=== PATIENT | female | born 1990 | race Asian ===

== ENCOUNTER 2022-03-12 10:40 | Emergency (ER) | payer MEDICAID ==
[~2022-03-12] VITALS: Ht 165.1 cm; Wt 81.8 kg
[2022-03-12 11:39] LABS: BASOPHILS % (AUTO) 0.2 % (0.0-2.0); EOSINOPHILS % (AUTO) 0.9 % (1.0-6.0); HEMATOCRIT 40.3 % (36-46); HEMOGLOBIN 13.4 g/dL (12.0-16.0); LYMPHOCYTES # (AUTO) 2.1 K/uL (1.0-4.8); LYMPHOCYTES % (AUTO) 11.7 % (22.0-44.0); MEAN CORPUSCULAR HEMOGLOBIN 31.1 pg (26.0-34.0); MEAN CORPUSCULAR HGB CONC 33.1 G/dL (31.0-37.0); MEAN CORPUSCULAR VOLUME 94 fL (80-100); MONOCYTES # (AUTO) 0.8 K/uL (0.1-1.0); MONOCYTES % (AUTO) 4.8 % (2.0-9.0); NEUTROPHILS # (AUTO) 14.4 K/uL (1.8-7.7); NEUTROPHILS % (AUTO) 82.4 % (40.0-70.0); PLATELET COUNT (AUTO) 364 K/uL (150-450); RED BLOOD CELL COUNT(AUTO) 4.29 MIL/uL (4.00-5.20); RED CELL DISTRIBUTION WIDTH 13.1 % (11.5-14.5)
[2022-03-12 11:49] LABS: ANION GAP 8 mmol/L (8-16); CALCIUM, TOTAL 9.2 mg/dL (8.8-10.5); CARBON DIOXIDE 28 mmol/L (22-29); CHLORIDE 102 mmol/L (98-107); CREATININE 0.77 mg/dL (0.60-1.30); GLUCOSE,RANDOM 120 mg/dL (70-110); POTASSIUM 3.8 mmol/L (3.5-5.1); SODIUM SERUM 138 mmol/L (136-145); UREA NITROGEN, BLOOD 7 mg/dL (7-18)
[2022-03-12 11:50] LABS: GLOMERULAR FILTR. RATE CALC > 60 mL/min (>60)
[2022-03-12 12:06] LABS: ALANINE AMINOTRANSFERASE 39 U/L (12-78); ALBUMIN 3.9 g/dL (3.4-5.0); ALKALINE PHOSPHATASE 64 U/L (46-116); ASPARTATE AMINOTRANSFERASE 18 U/L (15-37); BILIRUBIN,TOTAL 0.4 mg/dL (0.1-1.0); HCG,QUANTITATIVE < 1 mIU/mL (0-6); LIPASE 90 U/L (73-393)
[2022-03-12] MEDS ORDERED: ONDANSETRON HCL 4 MG/2 ML VIAL IVP ONE (12:15)
[2022-03-12] MEDS ORDERED: SODIUM CHLORIDE 0.9% 1,000 ML IV ONE (12:15)
[2022-03-12 13:38] VITALS: BP 126/80
== END 2022-03-12 13:49 | disposition home or self-care (01) ==
LOC: EMS 10:40
DX: K52.9 Noninfective gastroenteritis and colitis, unspecified (principal)
CPT/HCPCS: 99283; 96374; 96361; 80053; 81002; 83690; 84702; 85025; 36415; J2405; J7030

== ENCOUNTER 2025-03-13 10:27 | Inpatient (IN) | payer MEDICAID ==
[~2025-03-13] VITALS: Ht 165.1 cm; Wt 76.4 kg
[2025-03-13 10:51] LABS: PLATELET COUNT (AUTO) 347 K/uL (150-450); RED BLOOD CELL COUNT(AUTO) 4.13 MIL/uL (4.00-5.20); RED CELL DISTRIBUTION WIDTH 12.9 % (11.5-14.5); WHITE BLOOD COUNT (AUTO) 10.6 K/uL (4.5-11.0)
[2025-03-13 11:01] LABS: CALCIUM, TOTAL 8.5 mg/dL (8.8-10.5); CREATININE 0.65 mg/dL (0.60-1.30); GLOMERULAR FILTR. RATE CALC > 60 mL/min (>60); GLUCOSE,RANDOM 150 mg/dL (70-110); SODIUM SERUM 137 mmol/L (136-145); UREA NITROGEN, BLOOD 7 mg/dL (7-18)
[2025-03-13 11:07] LABS: COVID AG,FIA SOURCE NASAL SWAB
[2025-03-13 11:07] LABS: ASPARTATE AMINOTRANSFERASE 23 U/L (15-37); TOTAL PROTEIN, SERUM 7.6 g/dL (6.4-8.2)
[2025-03-13] MEDS: SODIUM CHLORIDE 0.9% 1,000 ML IV ONE (11:09)
[2025-03-13 11:15] LABS: ALCOHOL, BLOOD (SERUM) < 3 mg/dL (0-10)
[2025-03-13 11:27] LABS: SARS-COV2 (COVID) ANTIGEN,FIA Negative (Negative)
[2025-03-13 11:38] LABS: APPEARANCE,URINE CLEAR (CLEAR); GLUCOSE, URINE (UA) NEGATIVE (NEGATIVE); LEUKOCYTE ESTERASE ,URINE LARGE (NEGATIVE); NITRATE,URINE NEGATIVE (NEGATIVE); OCCULT BLOOD,URINE NEGATIVE (NEGATIVE); PH,URINE DRUG SCREEN 6.0 (5.0-8.0); SPECIFIC GRAVITIY, URINE 1.013 (1.003-1.030)
[2025-03-13 11:44] LABS: SQUAMOUS EPITHELIAL CELL,UR Moderate /LPF (None Seen)
[2025-03-13 11:48] LABS: ALCOHOL, URINE DRUG SCREEN NEGATIVE (NEGATIVE); AMPHET/METH SCREEN,URINE NEGATIVE (NEGATIVE); BARBITURATE SCREEN, URINE NEGATIVE (NEGATIVE); CANNABINOID SCREEN,URINE NEGATIVE (NEGATIVE); COCAINE SCREEN,URINE NEGATIVE (NEGATIVE); METHADONE SCREEN, URINE NEGATIVE (NEGATIVE)
[2025-03-13] MEDS: CEPHALEXIN MONOHYDRATE 500 MG CAPSULE PO ONE (12:12)
[2025-03-13] MEDS ORDERED: ZOLPIDEM TARTRATE 10 MG TABLET PO PRN (12:45)
[2025-03-13 17:00] VITALS: O2SAT 99
[2025-03-13] MEDS ORDERED: CEPHALEXIN MONOHYDRATE 500 MG CAPSULE PO SCH (20:49)
[2025-03-13] MEDS ORDERED: ONDANSETRON 4 MG TABLET PO PRN (22:15)
[2025-03-13] MEDS ORDERED: DOCUSATE SODIUM 100 MG CAPSULE PO PRN (22:15)
[2025-03-13] MEDS ORDERED: IBUPROFEN 600 MG TABLET PO PRN (22:15)
[2025-03-13] MEDS ORDERED: MAG HYDROX/ALUMINUM HYD/SIMETH ES 30 ML SUSPENSION UDCUP PO PRN (22:15)
[2025-03-13] MEDS ORDERED: BENZOCAINE/MENTHOL [CEPACOL] LOZENGE PO PRN (22:15)
[2025-03-13] MEDS ORDERED: PETROLATUM,WHITE 28 GM JELLY TP PRN (22:15)
[2025-03-13] MEDS ORDERED: MAGNESIUM HYDROXIDE SUSPENSION 30 ML UDCUP PO PRN (22:15)
[2025-03-13] MEDS ORDERED: LOPERAMIDE HCL 2 MG CAPSULE PO PRN (22:15)
[2025-03-13] MEDS ORDERED: ACETAMINOPHEN 325 MG TABLET PO PRN (22:15)
[2025-03-13] MEDS ORDERED: ALBUTEROL SULFATE HFA 90 MCG/PUFF 8 GM INHALER IH PRN (22:15)
[2025-03-13] MEDS ORDERED: BACITRACIN 28 GM OINTMENT TP PRN (22:15)
[2025-03-13] MEDS ORDERED: OMEPRAZOLE 20 MG CAPSULE PO PRN (22:15)
[2025-03-13 23:43] VITALS: BP 112/75; PULSE 69; RESP 18; TEMP 97.9; O2SAT 97
[2025-03-14] MEDS: INFLUENZA VIRUS VACCINE TVS (6MO+) 2025-26/PF 45 MCG/0.5 ML SYRINGE IM. ONE (00:30)
[2025-03-14 08:13] LABS: CHOL/HDL RATIO 4.0 (3.9-5.7); LDL CHOL (CALC.) 137.0 mg/dL (0-130)
[2025-03-14] MEDS: CEPHALEXIN MONOHYDRATE 500 MG CAPSULE PO SCH (08:51)
[2025-03-14 09:40] VITALS: BP 116/72; PULSE 75; RESP 18; TEMP 98
[2025-03-14 15:40] LABS: ASPARTATE AMINOTRANSFERASE 20 U/L (15-37); CALCIUM, TOTAL 8.9 mg/dL (8.8-10.5); CREATININE 0.55 mg/dL (0.60-1.30); GLOMERULAR FILTR. RATE CALC > 60 mL/min (>60); GLUCOSE,RANDOM 109 mg/dL (70-110); SODIUM SERUM 139 mmol/L (136-145); TOTAL PROTEIN, SERUM 7.6 g/dL (6.4-8.2); UREA NITROGEN, BLOOD 7 mg/dL (7-18)
[2025-03-14 20:12] VITALS: BP 123/71; PULSE 73; RESP 16; TEMP 97.3; O2SAT 98
[2025-03-15 11:15] VITALS: BP 114/65; PULSE 71; RESP 16; TEMP 97.9; O2SAT 98
[2025-03-15 21:01] VITALS: BP 103/64; PULSE 72; RESP 16; TEMP 97.8; O2SAT 99
[2025-03-16 09:33] VITALS: BP 107/66; PULSE 76; RESP 18; TEMP 98.7; O2SAT 100
[2025-03-16] MEDS ORDERED: CEPH-558 PO (10:19)
== END 2025-03-16 15:55 | disposition home or self-care (01) | DRG 751 ==
LOC: EMS 10:28 → 3EI 20:27
PROVIDERS: ADMIT Psychiatry & Neurology Psychiatry; ATTEND Psychiatry & Neurology Psychiatry
PROC: GZHZZZZ Group Psychotherapy (ICD-10-PCS; principal; 2025-03-14)
DX: F32.2 Major depressive disorder, single episode, severe without psychotic features (principal); R45.851 Suicidal ideations; F41.9 Anxiety disorder, unspecified; T39.1X2A Poisoning by 4-Aminophenol derivatives, intentional self-harm, initial encounter; Z20.822 Contact with and (suspected) exposure to COVID-19; N39.0 Urinary tract infection, site not specified; Z91.52 Personal history of nonsuicidal self-harm; Y92.89 Other specified places as the place of occurrence of the external cause; Z79.899 Other long term (current) drug therapy
CPT/HCPCS: 80048; 80053; 80061; 80076; 80307; 81001; 83036; 84703; 85025; 87086; 93005; 96360; 99291; G0480; G0481; 36415-L1; 36415-TC